=== PATIENT | female | born 1990 | race African-American/Black ===

== ENCOUNTER 2024-06-05 13:05 | Emergency (ER) | payer OTHER, SELFPAY ==
--- NOTE | 2024-06-05 13:08 | ECG_ITS ---
Test Reason : chest pain Blood Pressure : / mmHG Vent. Rate : 115 BPM Atrial Rate : 115 BPM P-R Int : 172 ms QRS Dur : 080 ms QT Int : 314 ms P-R-T Axes : 059 046 013 degrees QTc Int : 434 ms Sinus tachycardia Cannot rule out Inferior infarct , age undetermined Abnormal ECG No previous ECGs available Referred By: Generic ED Physician Electronically Signed By:ROSELIA ROUSSEAU
[2024-06-05 13:20] VITALS: BP 132/77; PULSE 119; RESP 19; TEMP 36.9; O2SAT 98; BMI 37.2
--- NOTE | 2024-06-05 13:20 | ED_ITS ---
HPI - Arrhythmia/Palpitations General Chief Complaint: General Medical Stated Complaint: Tachy/Abd pain Related Data Allergies Allergy/AdvReac Type Severity Reaction Status Date / Time almond Allergy Itching Verified 06/05/24 13:24 vancomycin Allergy Unknown Verified 06/05/24 13:24 [facility] Social History Social History Advance Directives: No Advance Directives Information Provided: Yes Physical Exam 2 Vital Signs: Vital Signs: Last Vital Signs Temp 98.1 F 06/05/24 16:35 Pulse 77 06/05/24 16:35 Resp 18 06/05/24 16:35 BP 129/76 06/05/24 16:35 Pulse Ox 96 06/05/24 16:35 O2 Del Method Room Air 06/05/24 16:35 BMI result Body Mass Index 37.2 Course Course Course Narrative: This is a Rapid Medical Examination (RME) performed by Wendy Linton PA-C in triage. Full HPI, ROS, assessment and treatment plan per primary provider in the Main ED. 33 yo female with history of SVT on propranolol 40 mg per day, GERD, hx paraesophageal hernia that needs repair who presents to the ER for evaluation of palpitations and tachycardia for the last 3 days, occurring nightly when she lays down. HR up to 162 last night. She took an immediate release propranolol with improvement in HR. She reports mild, nonradiating right sided chest pain that started this morning. Reports right flank pain that started yesterday as well. Follows with Cardiology at [facility]. HR 116 in triage with BP 132/77, no distress. exam w/ sinus rhythm on auscultation, tachycardic 110s, clear lungs throughout. no peripheral edema. Plan: EKG reviewed - showing sinus tachycardia w/ HR 115. no ST segment elevations or depressions will check labs, CXR. Reevaluation(s) Reevaluation #1: repeat VS are stable, HR improved without intervention. patient shortly after repear VS eloped from the ER WR prior to completing treatment. Medical Decision Making Lab Data 06/05/24 13:18 06/05/24 13:18 Labs: Lab Results 06/05/24 Range/Units 13:18 WBC 7.6 (4.8-10.8) X10*3/uL RBC 4.68 (4.20-5.50) X10*6/uL Hgb 11.8 L (12.0-16.0) g/dl Hct 37.7 (37.0-47.0) % MCV 80.6 (80.0-98.0) fL MCH 25.2 L (27.0-33.0) pg MCHC 31.3 (31.0-35.0) g/dl RDW 15.3 (11.0-16.0) % Plt Count 241 (160-400) X10*3/uL MPV 10.8 (9.4-12.3) fL Immature Gran % (Auto) 0.3 (0.0-0.4) % Neut % (Auto) 62.7 (45-73) % Lymph % (Auto) 31.9 (20-40) % [place] % (Auto) 4.1 (2-11) % Eos % (Auto) 0.5 (0-4) % Baso % (Auto) 0.5 (0-2) % Lymph # (Auto) 2.4 (1.2-4.9) X10*3/uL [place] # (Auto) 0.3 (0.1-1.2) X10*3/uL Eos # (Auto) 0.0 (0.0-0.4) X10*3/uL Baso # (Auto) 0.0 (0.0-0.2) X10*3/uL Abs Immat Gran (auto) 0.02 (0.00-0.03) X10*3/uL Absolute Neuts (auto) 4.8 (2.0-8.3) x10*3/uL Absolute Nucleated RBC 0.000 (0.0-0.012) X10*3/uL Nucleated RBC % (auto) 0.0 (0.0-0.2) /100WBC Sodium 141 (135-145) mmol/L Potassium 3.8 (3.3-5.1) mmol/L Chloride 108 (96-108) mmol/L Carbon Dioxide 24 (22-29) mmol/L Anion Gap 13 (12-20) BUN 11 (9-16) mg/dL Creatinine 0.81 (0.5-1.4) mg/dL Estim Creat Clear Calc 127.8 Estimated GFR > 60 Random Glucose 117 H (60-115) mg/dL Calcium 9.5 (8.4-10.2) mg/dL Total Bilirubin 0.3 (0.0-1.0) mg/dL Direct Bilirubin 0.1 (0.0-0.5) mg/dL AST 12 (5-31) U/L ALT 10 (0-31) U/L Alkaline Phosphatase 77 (39-117) U/L Troponin I High Sens < 2.7 (<3.5-17.0) ng/L Total Protein 6.6 (6.5-8.0) g/dL Albumin 3.7 (3.5-5.0) g/dL Lipase 12 (8-78) U/L TSH 0.54 (0.32-4.0) uIU/mL Discharge Plan Discharge Clinical Impression: Palpitations Patient Disposition: Left W/O Completing Treatment Print Language: Slovenian
[2024-06-05 13:23] LABS: MANUAL DIFF FLAG NO
[2024-06-05 13:25] LABS: Basophils Percent Auto 0.5 % (0-2); Eosinophils Percent Auto 0.5 % (0-4); Hematocrit 37.7 % (37.0-47.0); Hemoglobin 11.8 g/dl (12.0-16.0); Imm Gran Abs Auto 0.02 X10*3/uL (0.00-0.03); Imm Gran Pct Auto 0.3 % (0.0-0.4); Lymphocytes Absolute Auto 2.4 X10*3/uL (1.2-4.9); Lymphocytes Percent Auto 31.9 % (20-40); Mean Corpuscular HGB Conc 31.3 g/dl (31.0-35.0); Mean Corpuscular Hemoglobin 25.2 pg (27.0-33.0); Mean Corpuscular Volume 80.6 fL (80.0-98.0); Mean Platelet Volume 10.8 fL (9.4-12.3); Monocytes Absolute Auto 0.3 X10*3/uL (0.1-1.2); Monocytes Percent Auto 4.1 % (2-11); Neutrophils Absolute Auto 4.8 x10*3/uL (2.0-8.3); Neutrophils Percent Auto 62.7 % (45-73); Platelet Count 241 X10*3/uL (160-400); Red Blood Count 4.68 X10*6/uL (4.20-5.50); Red Cell Distribution Width 15.3 % (11.0-16.0); White Blood Count 7.6 X10*3/uL (4.8-10.8)
[2024-06-05 13:40] LABS: Alanine Aminotransferase 10 U/L (0-31); Albumin Level 3.7 g/dL (3.5-5.0); Alkaline Phosphatase 77 U/L (39-117); Anion Gap 13 (12-20); Aspartate Amino Transferase 12 U/L (5-31); Bilirubin Direct 0.1 mg/dL (0.0-0.5); Bilirubin Total 0.3 mg/dL (0.0-1.0); Blood Urea Nitrogen 11 mg/dL (9-16); Calcium 9.5 mg/dL (8.4-10.2); Carbon Dioxide 24 mmol/L (22-29); Chloride 108 mmol/L (96-108); Creatinine Clr Calc Pharmacy 127.8; Estimated Glomerular Filt Rate > 60; Glucose Random 117 mg/dL (60-115); Lipase 12 U/L (8-78); Potassium 3.8 mmol/L (3.3-5.1); Sodium 141 mmol/L (135-145); Total Protein 6.6 g/dL (6.5-8.0)
[2024-06-05 13:49] LABS: Troponin-I High Sensitivity < 2.7 ng/L (<3.5-17.0)
[2024-06-05 15:02] LABS: TSH reflex Free T4 0.54 uIU/mL (0.32-4.0)
[2024-06-05 16:35] VITALS: BP 129/76; PULSE 77; RESP 18; TEMP 36.7; O2SAT 96
== END 2024-06-05 17:56 | disposition left against medical advice (07) ==
PROVIDERS: Physician Assistant; Emergency Provider Emergency Medicine
DX: R00.2 Palpitations (principal); R00.0 Tachycardia, unspecified; R10.9 Unspecified abdominal pain
CPT/HCPCS: 36415; 80048; 80076; 83690; 84443; 84484; 85025; 93005; 99281; 99283

== ENCOUNTER → 2024-06-05 13:08 | Outpatient (BNV) | payer OTHER, SELFPAY | PROVIDERS: Emergency Provider Emergency Medicine; Visit Provider Internal Medicine | DX: R94.31 Abnormal electrocardiogram [ECG] [EKG] (principal) | CPT/HCPCS: 93010 ==

== ENCOUNTER 2024-07-02 10:09 | Emergency (ER) | payer OTHER, SELFPAY ==
[2024-07-02 10:13] VITALS: BP 121/81; PULSE 74; RESP 16; TEMP 36; O2SAT 98; BMI 37.1
--- NOTE | 2024-07-02 11:31 | ED.GENADULT ---
HPI - General Adult General Chief complaint: Skin/Abscess/Foreign Body Stated complaint: painfull lump in head Time Seen by Provider: 07/02/24 11:26 Source: patient Mode of arrival: ambulatory Limitations: no limitations History of Present Illness ED Provider: rae [facility] narrative: Patient is a 33-year-old female with history of migraines presenting to the emergency department with complaint of bump and pain to her scalp which she noted yesterday. States she frequently wears her hair pulled back in a ponytail. She initially noted a bump to the top of her scalp, then asked her mother to braid her hair and today the area was sore to touch. Denies headache. Denies any discharge or drainage from the area. Denies ever noting this bump before. complaint: Scalp pain Onset (ago): day(s) Location: head Treatments prior to arrival: none Related Data Allergies Allergy/AdvReac Type Severity Reaction Status Date / Time almond Allergy Itching Verified 07/02/24 10:15 vancomycin Allergy Unknown Verified 07/02/24 10:15 Review of Systems Review of Systems: As per HPI. Yes all other systems are reviewed and are negative Constitutional: Constitutional: Reports as per HPI [facility] Social History Social History Advance Directives: No Advance Directives Information Provided: Yes Do you have a plan to hurt others: No Plan Physical Exam ED Vital Signs: Vital Signs - 24 hr 07/02/24 10:13 Temperature 96.8 F Pulse Rate 74 Respiratory Rate 16 Blood Pressure 121/81 Pulse Oximetry 98 Oxygen Delivery Method Room Air BMI result Body Mass Index 37.1 Vital signs have been reviewed and appear to be correct. Blood pressure normal. Heart rate normal. Respiratory rate normal. Temperature normal. Oxygen saturation normal. Const General: cooperative, healthy appearing and no acute distress Orientation/consciousness: oriented to person, oriented to place, oriented to time and patient oriented x3 Limitations: no limitations HENMT Head: Yes normocephalic and Yes atraumatic Head images: 1. firm 1-2cm area of tenderness, area slightly raised, no erythema, no warmth, no fluctuance Ears: external ears normal General nose exam: Normal external nose present Face and sinus: Yes face symmetric Mouth: oropharynx normal and moist mucous membranes Throat: Yes uvula midline Eyes Pupils: Equal, round and reactive pupils present Neck Neck: Yes normal visual inspection, Yes no meningeal signs and Yes supple Resp Effort & Inspection: normal respiratory effort and able to speak in complete sentences Auscultation: clear to auscultation bilaterally Cardio Rate: regular rate Rhythm: regular rhythm Heart sounds: S1 normal heart sound present and S2 normal heart sound present GI Palpation (GI): Soft to palpation and nontender Auscultation: normoactive bowel sounds General: Yes no CVA tenderness Back/Spine/Pelvis Back: no CVA tenderness Skin General skin exam: elasticity normal and turgor normal Neuro General: oriented to person, oriented to place, oriented to time, patient oriented x3, gait normal, tone normal, moves all extremities, Normal light touch and pain sensation, no meningeal signs, no focal motor deficits and CN's II-XI intact bilaterally Cranial nerves: Yes Equal, round and reactive pupils present Cognition (Neuro): normal cognition Extrem General: Yes full ROM, Yes no pedal edema and Yes no calf tenderness Psych Mental Status: mental status grossly normal Affect: normal affect Thought process: Normal thought process present Medical Decision Making Medical Decision Making [facility] Narrative: Patient is a 33-year-old female with history of migraines presenting to the emergency department with complaint of bump and pain to her scalp which she noted yesterday. On exam patient is awake, A+Ox3, VS WNL, afebrile, normal neurological exam without focal deficits, physical exam findings as above. Given reported symptoms and physical exam findings, initial differential includes folliculitis, abscess, contusion. No red flag findings. No neuro deficits. Exam not consistent with abscess or folliculitis. Discussed with patient proceeding with a watch and wait approach, follow up with PCP. Patient is agreeable to this. Return precautions discussed. Patient verbalized understanding of and agreement with plan. Differential Diagnosis Differential Diagnoses: The differential diagnosis associated with the presentation includes as per [facility] External Record Review External record reviewed: Inpatient record, Office record and Outpatient record Discharge Plan Discharge Clinical Impression: Scalp pain Patient Disposition: Home, Self-Care Additional Instructions: You were evaluated in the emergency department today for scalp pain. Your evaluation did not show evidence of conditions requiring emergent medical treatment at this time. We recommend monitoring the area several times daily for any changes. Follow-up with your primary care provider. Return to the emergency department if you develop new redness, swelling, drainage, fevers, worst headache of your life or any other concerning symptoms. Print Language: Estonian
[2024-07-02 13:10] VITALS: BP 130/71; PULSE 64; RESP 16; TEMP 36.2; O2SAT 97
== END 2024-07-02 13:13 | disposition home or self-care (01) ==
PROVIDERS: Emergency Provider Emergency Medicine Emergency Medical Services; PCP Internal Medicine
DX: R51.9 Headache, unspecified (principal)
CPT/HCPCS: 99283